=== PATIENT | male | born 1985 ===

== ENCOUNTER 2016-11-14 18:35 | Emergency (ER) | payer OTHER ==
[2016-11-14 18:42] VITALS: O2SAT 99
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
[2016-11-14] MEDS ORDERED: DiphenhydrAMINE 50 mg/ml Inj IVP STA (20:33)
--- NOTE | 2016-11-14 21:05 | US ---
EXAM: US Duplex Right Upper Extremity Arteries CLINICAL HISTORY: 31 years old, male; Pain; Arn, upper; Right; Additional info: Edema S/P heroin injection TECHNIQUE: Real-time ultrasound scan of the arteries of the right upper extremity with 2-D sanchez scale, color Doppler flow and spectral waveform analysis. COMPARISON: No relevant prior studies available. FINDINGS: Right subclavian artery: No acute findings. No occlusion or significant stenosis. Normal waveform. Right axillary artery: No acute findings. No occlusion or significant stenosis. Normal waveform. Right brachial artery: No acute findings. No occlusion or significant stenosis. Normal waveform. Right radial artery: No acute findings. No occlusion or significant stenosis. Normal waveform. Right ulnar artery: No acute findings. No occlusion or significant stenosis. Normal waveform. IMPRESSION: No acute vascular abnormality.
--- NOTE | 2016-11-14 21:07 | US ---
EXAM: US Duplex Right Upper Extremity Veins CLINICAL HISTORY: 31 years old, male; Signs and symptoms; Edema, localized; Upper extremity, right; Additional info: Edema S/P heroin injection TECHNIQUE: Real-time ultrasound scan of the veins of the right upper extremity with color Doppler flow, spectral waveform analysis and compression. COMPARISON: No relevant prior studies available. FINDINGS: Deep veins: Unremarkable as visualized. No DVT in the internal jugular, subclavian, axillary, or brachial veins. The veins are compressible with normal color flow and augmentation. Superficial veins: Unremarkable as visualized. No thrombus in the visualized basilic and cephalic veins. Soft tissues: 1.9 x 0.5 x 0.7 cm collection in the lateral antecubital fossa. IMPRESSION: No acute vascular abnormality. 1.9 x 0.5 x 0.7 cm collection in the lateral antecubital fossa. Correlate clinically. Followup evaluation recommended.
[2016-11-14 21:13] LABS: BASO # 0.1 K/uL (0.0-0.2); BASO % 0.5 % (0.0-2.0); EOS # 0.2 K/uL (0.0-0.7); EOS % 1.5 % (0.0-4.0); HEMATOCRIT 39.6 % (35.0-51.0); LYMPH # 2.4 K/uL (1.0-4.3); MEAN CELL VOLUME 84.2 fl (80.0-94.0); MEAN CORPUSCULAR HEMOGLOBIN 27.1 pg (27.0-31.0); MEAN CORPUSCULAR HGB CONC 32.2 g/dL (33.0-37.0); MEAN PLATELET VOLUME 8.5 fl (7.2-11.7); MONO # 0.9 K/uL (0.0-0.8); MONO % 7.7 % (0.0-10.0); NEUT # 8.3 K/uL (1.8-7.0); NEUT % 70.3 % (50.0-75.0); RED CELL DISTRIBUTION WIDTH 14.5 % (11.5-14.5); WHITE BLOOD COUNT 11.9 K/uL (4.8-10.8)
[2016-11-14 21:24] LABS: ALB/GLOB RATIO 1.1 (1.0-2.1); ALKALINE PHOSPHATASE 117 U/L (38-126); ALT/SGPT 56 U/L (21-72); AST/SGOT 37 U/L (17-59); BILIRUBIN,TOTAL 0.5 mg/dl (0.2-1.3); BLOOD UREA NITROGEN 13 mg/dl (9-20); CALCIUM 9.1 mg/dL (8.4-10.2); CARBON DIOXIDE 30 mmol/L (22-30); CHLORIDE 105 mmol/L (98-107); GFR AFRICAN-AMERICAN > 60; GLUCOSE,RANDOM 78 mg/dL (75-110); POTASSIUM 4.2 MMOL/L (3.6-5.0); SODIUM 143 mmol/l (132-148); TOTAL PROTEIN 7.1 G/DL (6.3-8.2)
[2016-11-14] MEDS ORDERED: DiphenhydrAMINE 50 mg/ml Inj ONE (21:27)
[2016-11-14] MEDS ORDERED: Vancomycin 1 g Inj ONE (21:29)
[2016-11-14 21:36] LABS: PARTIAL THROMBOPLASTIN TIME 26.6 SECONDS (23.3-32.5)
[2016-11-14] MEDS ORDERED: Sodium Chloride 0.9% 50 ML IV ONE (22:07)
[2016-11-14] MEDS ORDERED: Iohexol 300 100 ML IJ ONE (22:07)
--- NOTE | 2016-11-14 23:13 | CT ---
EXAM: CT Right Upper Extremity With Intravenous Contrast CLINICAL HISTORY: 31 years old, male; Signs and symptoms; Swelling; Arm, lower and elbow and hand and wrist; Right; Additional info: Ruq edema S/P heroin injection TECHNIQUE: Axial computed tomography images of the right upper extremity with intravenous contrast. This CT exam was performed using one or more of the following dose reduction techniques: automated exposure control, adjustment of the mA and/or kV according to patient size, and/or use of iterative reconstruction technique. Coronal and sagittal reformatted images were created and reviewed. CONTRAST: 95 mL of [id number] administered intravenously. COMPARISON: US - DUPLEX UPPER EXTRM ARTR RIGHT 11/14/2016 8:01:31 PM FINDINGS: Bones/joints: Unremarkable as visualized. No acute fracture. No dislocation. Soft tissues: Focus of increased markings noted in the subcutaneous tissue in the region of the antecubital fossa. Evaluation severely limited by technique. IMPRESSION: Focus of increased markings noted in the subcutaneous tissue in the region of the antecubital fossa. Evaluation severely limited by technique.
--- NOTE | 2016-11-14 23:46 | CP.PCM.HP ---
Past Patient History - Past Social History Drugs: Opiates (heroin ) - PSYCHIATRIC Hx Substance Use: Yes (heroine) Meds Allergies/Adverse Reactions: Allergies Allergy/AdvReac Type Severity Reaction Status Date / Time shellfish derived Allergy RASH Verified 11/14/16 18:38 Results - Vital Signs Recent Vital Signs: Last Vital Signs Temp 98.3 F 11/14/16 18:38 Pulse 110 H 11/14/16 18:38 Resp 18 11/14/16 18:38 BP 125/79 11/14/16 18:38 Pulse Ox 99 11/14/16 20:35 - Labs Result Diagrams: 11/14/16 21:08 11/14/16 21:08 Labs: Laboratory Results - last 24 hr 11/14/16 11/14/16 11/14/16 21:08 21:08 21:08 WBC 11.9 H RBC 4.70 Hgb 12.7 Hct 39.6 MCV 84.2 MCH 27.1 MCHC 32.2 L RDW 14.5 Plt Count 287 MPV 8.5 Neut % (Auto) 70.3 Lymph % (Auto) 20.0 [place] % (Auto) 7.7 Eos % (Auto) 1.5 Baso % (Auto) 0.5 Neut # 8.3 H Lymph # 2.4 [place] # 0.9 H Eos # 0.2 Baso # 0.1 PT 10.6 INR 1.02 APTT 26.6 Sodium 143 Potassium 4.2 Chloride 105 Carbon Dioxide 30 Anion Gap 12 BUN 13 Creatinine 1.1 Est GFR ( Amer) > 60 Est GFR (Non-Af Amer) > 60 Random Glucose 78 Calcium 9.1 Total Bilirubin 0.5 AST 37 ALT 56 Alkaline Phosphatase 117 Total Protein 7.1 Albumin 3.7 Globulin 3.4 Albumin/Globulin Ratio 1.1 Assessment & Plan - Date & Time Date: 11/14/16 Time: 23:46
[2016-11-15 00:17] VITALS: BP 122/76; PULSE 76; RESP 16; TEMP 98.9
--- NOTE | 2016-11-15 09:39 | RAD ---
PROCEDURE: Left Foot Radiographs. HISTORY: Induration COMPARISON: None. FINDINGS: BONES: Normal. No fracture. JOINTS: Normal. SOFT TISSUES: Normal. OTHER FINDINGS: None. IMPRESSION: Normal left foot radiographs. If symptoms persist or occult fracture suspected clinically repeat radiographs in 5-10 days could be performed as most fractures should become radiographically evident this timeframe. Alternatively, MRI could be obtained
== END 2016-11-15 00:17 | disposition home or self-care (01) ==
LOC: H.ER 18:35 → H.ERHOLD 23:34 → UNDOADMOB 23:34 → H.ER 11-15 00:17
DX: L03.113 Cellulitis of right upper limb (principal); L03.116 Cellulitis of left lower limb; T78.40XA Allergy, unspecified, initial encounter; F19.10 Other psychoactive substance abuse, uncomplicated

== ENCOUNTER 2016-12-29 03:05 | Emergency (ER) | payer SELFPAY ==
[2016-12-29 03:12] VITALS: BP 114/66; PULSE 91; RESP 16; TEMP 98; O2SAT 100
--- NOTE | 2016-12-29 03:57 | ED PDOC ---
HPI: Allergic Reaction Time Seen by Provider: 12/29/16 03:11 Chief Complaint (Nursing): Allergic Reaction History Per: Patient History/Exam Limitations: no limitations Onset/Duration Of Symptoms: Days (1) Current Symptoms Are (Timing): Better Possible Cause: Unknown Associated Symptoms: Skin Rash, Swelling, Itching Home/EMS Treatment: Benadryl Severity: Moderate Pain Scale Rating Of: 0 Additional History Per: Patient Additional Complaint(s): Pt report rash, lip swelling for 1 day. also reports left facial swelling. Unknown provoking factor. NO difficulty breathing or wheezing. No drooling. Pot report daily heroine IV use. Pt co left foot redness in injection sites. Past Medical History Reviewed: Historical Data, Nursing Documentation, Vital Signs Vital Signs: Last Vital Signs Temp 98 F 12/29/16 03:09 Pulse 91 H 12/29/16 03:09 Resp 16 12/29/16 03:09 BP 114/66 12/29/16 03:09 Pulse Ox 100 12/29/16 03:09 - Medical History PMH: No Chronic Diseases - Surgical History Surgical History: No Surg Hx - Family History Family History: States: No Known Family Hx - Home Medications Home Medications: Ambulatory Orders Medication Instructions Recorded DiphenhydrAMINE [Benadryl] 50 mg PO Q8H #20 cap 11/14/16 Famotidine [Pepcid] 20 mg PO BID #20 tab 11/14/16 Prednisone 50 mg PO DAILY #4 tab 11/14/16 Sulfamethoxazole/Trimethoprim 1 tab PO BID #20 tab 11/14/16 [Bactrim DS 800 mg-160 mg] Prednisone 50 mg PO DAILY #3 tablet 12/29/16 Sulfamethoxazole/Trimethoprim 1 tab PO BID #14 tab 12/29/16 [Bactrim DS 800 mg-160 mg] - Allergies Allergies/Adverse Reactions: Allergies Allergy/AdvReac Type Severity Reaction Status Date / Time shellfish derived Allergy RASH Verified 11/14/16 18:38 Review of Systems ROS Statement: Except As Marked, All Systems Reviewed And Found Negative Physical Exam - Reviewed Nursing Documentation Reviewed: Yes Vital Signs Reviewed: Yes - Physical Exam Appears: Positive for: Non-toxic. Negative for: Uncomfortable, In Acute Distress Head Exam: Positive for: ATRAUMATIC Skin: Positive for: Warm, Dry, Rash (mild urticaria abdomen) Eye Exam: Positive for: EOMI, Other (left periorbital swelling) ENT: Positive for: Other (upper lip swelling. no tongue swelling) Neck: Positive for: Supple Cardiovascular/Chest: Positive for: Regular Rate, Rhythm. Negative for: Tachycardia Respiratory: Positive for: Normal Breath Sounds. Negative for: Wheezing Gastrointestinal/Abdominal: Positive for: Soft. Negative for: Tenderness Extremity: Positive for: Other (mild redness left foot dorsum). Negative for: Deformity, Swelling Neurologic/Psych: Positive for: Alert, Oriented - ECG O2 Sat by Pulse Oximetry: 100 Disposition - Clinical Impression Clinical Impression: Angioedema - Patient ED Disposition Is Patient to be Admitted: No Doctor Will See Patient In The: Office Counseled Patient/Family Regarding: Studies Performed, Diagnosis, Need For Followup - Disposition Referrals: [facility] [Outside] Disposition: Routine/Home Disposition Time: 05:06 Condition: GOOD Additional Instructions: Follow up with your PCP in 2-3 days. Prescriptions: Prednisone 50 mg PO DAILY #3 tablet Sulfamethoxazole/Trimethoprim [Bactrim DS 800 mg-160 mg] 1 tab PO BID #14 tab Instructions: Angioedema (ED), Cellulitis (ED) Medical Decision Making Medical Decision Making: Impression Allergic reaction Urticaria, angioedema Pepcid IV solumedrol IV reassess
== END 2016-12-29 05:25 | disposition home or self-care (01) ==
LOC: H.ER 03:05
DX: T78.40XA Allergy, unspecified, initial encounter (principal)
CPT/HCPCS: 96374; 96375; 99282; J2930

== ENCOUNTER 2017-01-05 02:18 | Emergency (ER) | payer SELFPAY ==
[2017-01-05 02:28] VITALS: BP 126/53; PULSE 98; RESP 17; TEMP 99; O2SAT 100
[2017-01-05] MEDS ORDERED: DiphenhydrAMINE 50 mg/ml Inj IVP STA (03:13)
--- NOTE | 2017-01-05 03:27 | ED PDOC ---
HPI: Allergic Reaction Time Seen by Provider: 01/05/17 02:40 Chief Complaint (Nursing): Allergic Reaction Chief Complaint (Provider): Rash History Per: Patient History/Exam Limitations: no limitations Onset/Duration Of Symptoms: Days (9x) Current Symptoms Are (Timing): Still Present Home/EMS Treatment: Benadryl Severity: Moderate Additional Complaint(s): 31 year old male with no pertinent medical history presents to the ED with complaints of an itchy, red rash all over his body that started 9x days ago. He reports that it mildly resolves with benadryl, but then reoccurs. He reports that this morning he woke up with shortness of breath, chest tightness, and a non productive cough, which resolved after a few minutes. He was in this ED 6x days ago for a rash where he was discharged home with Rx for prednisone and bactrim (for a foot infection), but the rash persists. He denies having any exposure to new foods, lotions, creams, laundry detergent, pets, and environments outside of his home and work. He admits that he is a daily intravenous heroine user, but states that he quit 2x days ago. He denies having any withdrawal symptoms and does not believe that the rash is from the heroine. PMD: not provided Past Medical History Reviewed: Historical Data, Nursing Documentation, Vital Signs Vital Signs: Last Vital Signs Temp 99.0 F 01/05/17 02:25 Pulse 98 H 01/05/17 02:25 Resp 17 01/05/17 02:25 BP 126/53 L 01/05/17 02:25 Pulse Ox 100 01/05/17 02:25 - Medical History PMH: No Chronic Diseases - Surgical History Surgical History: No Surg Hx - Family History Family History: States: Unknown Family Hx - Social History Current smoker - smoking cessation education provided: Yes Alcohol: None Drugs: Other (heroine) - Home Medications Home Medications: Ambulatory Orders Medication Instructions Recorded DiphenhydrAMINE [Benadryl] 50 mg PO Q8H #20 cap 11/14/16 Famotidine [Pepcid] 20 mg PO BID #20 tab 11/14/16 Prednisone 50 mg PO DAILY #4 tab 11/14/16 Sulfamethoxazole/Trimethoprim 1 tab PO BID #20 tab 11/14/16 [Bactrim DS 800 mg-160 mg] Prednisone 50 mg PO DAILY #3 tablet 12/29/16 Sulfamethoxazole/Trimethoprim 1 tab PO BID #14 tab 12/29/16 [Bactrim DS 800 mg-160 mg] Albuterol HFA [Ventolin HFA 90 2 puff IH Q4H PRN #1 inh 01/05/17 mcg/actuation (8 g)] Famotidine [Pepcid] 40 mg PO DAILY PRN #14 tab 01/05/17 Fexofenadine HCl [LachelleNf] 180 mg PO DAILY #14 tab 01/05/17 Montelukast [Singulair] 10 mg PO DAILY #14 tab 01/05/17 Prednisone 50 mg PO DAILY #5 tablet 01/05/17 hydrOXYzine Pamoate [Vistaril] 50 mg PO BID PRN #30 cap 01/05/17 - Allergies Allergies/Adverse Reactions: Allergies Allergy/AdvReac Type Severity Reaction Status Date / Time shellfish derived Allergy RASH Verified 11/14/16 18:38 Review of Systems ROS Statement: Except As Marked, All Systems Reviewed And Found Negative Cardiovascular: Positive for: Chest Pain (chest tightness, has since resolved) Respiratory: Positive for: Cough (has since resolved), Shortness of Breath (has since resolved) Skin: Positive for: Rash (itchy and red) Physical Exam - Reviewed Nursing Documentation Reviewed: Yes Vital Signs Reviewed: Yes - Physical Exam Appears: Positive for: Well, Non-toxic, Uncomfortable Head Exam: Positive for: ATRAUMATIC, NORMOCEPHALIC Skin: Positive for: Warm, Dry, Rash (urticaria rash on neck, trunk, and extremities. face palms, and soles are spared.) Eye Exam: Positive for: Normal appearance, EOMI, PERRL Neck: Positive for: Normal, Supple Cardiovascular/Chest: Positive for: Regular Rate, Rhythm. Negative for: Chest Non Tender Respiratory: Positive for: Normal Breath Sounds. Negative for: Respiratory Distress Gastrointestinal/Abdominal: Positive for: Normal Exam, Soft. Negative for: Tenderness Extremity: Positive for: Normal ROM. Negative for: Deformity, Swelling Neurologic/Psych: Positive for: Alert, Oriented (3x) - Laboratory Results Result Diagrams: 01/05/17 03:20 01/05/17 03:20 - ECG O2 Sat by Pulse Oximetry: 100 (RA) Pulse Ox Interpretation: Normal Disposition - Clinical Impression Clinical Impression: Hives - Disposition Referrals: [facility] [Outside] (FOLLOW UP AT CLINIC THIS WEEK FOR FURTHER EVALUATION OF ALLERGIES) Disposition: Routine/Home Disposition Time: 04:00 Condition: STABLE Additional Instructions: YOU NEED TO FOLLOW UP WITH CLINIC FOR FURTHER ALLERGY TESTING RETURN TO ER FOR DIFFICULTY BREATHING, FAINTING OR NEAR FAINTING, THROAT CLOSING , OR ANY OTHER WORRISOME SYMPTOMS. Prescriptions: Albuterol HFA [Ventolin HFA 90 mcg/actuation (8 g)] 2 puff IH Q4H PRN #1 inh PRN Reason: ASTHMA Famotidine [Pepcid] 40 mg PO DAILY PRN #14 tab PRN Reason: reflux Fexofenadine HCl [LachelleNf] 180 mg PO DAILY #14 tab hydrOXYzine Pamoate [Vistaril] 50 mg PO BID PRN #30 cap PRN Reason: itching Montelukast [Singulair] 10 mg PO DAILY #14 tab Prednisone 50 mg PO DAILY #5 tablet Instructions: Urticaria (ED) Medical Decision Making Medical Decision Makin:40 Initial impression: 31 year old male with hives. Initial plan: * CMP * CBC * PT/PTT * XRay chest 2 views * benadryl 50mg IVP * blood culture * reevaluation Scribe Attestation: Documented by Amanda Bush, acting as a scribe for Jerri Anderson MD. Provider Scribe Attestation: All medical record entries made by the Scribe were at my direction and personally dictated by me. I have reviewed the chart and agree that the record accurately reflects my personal performance of the history, physical exam, medical decision making, and the department course for this patient. I have also personally directed, reviewed, and agree with the discharge instructions and disposition.
[2017-01-05 04:03] LABS: BASO % 0.3 % (0.0-2.0); EOS % 0.3 % (0.0-4.0); HEMATOCRIT 36.6 % (35.0-51.0); LYMPH % 13.4 % (20.0-40.0); MEAN CELL VOLUME 81.3 fl (80.0-94.0); MEAN CORPUSCULAR HEMOGLOBIN 27.1 pg (27.0-31.0); MEAN CORPUSCULAR HGB CONC 33.4 g/dL (33.0-37.0); MEAN PLATELET VOLUME 8.4 fl (7.2-11.7); MONO # 0.4 K/uL (0.0-0.8); MONO % 5.7 % (0.0-10.0); NEUT % 80.3 % (50.0-75.0); NRBC % 0.1 % (0.0-0.0); RED CELL DISTRIBUTION WIDTH 14.8 % (11.5-14.5); WHITE BLOOD COUNT 7.4 K/uL (4.8-10.8)
[2017-01-05 04:10] LABS: CHLORIDE 99 mmol/L (98-107); SODIUM 134 mmol/l (132-148)
[2017-01-05 04:11] LABS: POTASSIUM 4.3 MMOL/L (3.6-5.0)
[2017-01-05 04:13] LABS: ALB/GLOB RATIO 1.1 (1.0-2.1); ALKALINE PHOSPHATASE 94 U/L (38-126); AST/SGOT 29 U/L (17-59); BILIRUBIN,TOTAL 0.5 mg/dl (0.2-1.3); BLOOD UREA NITROGEN 13 mg/dl (9-20); CARBON DIOXIDE 30 mmol/L (22-30); GFR AFRICAN-AMERICAN > 60; GLUCOSE,RANDOM 86 mg/dL (75-110)
[2017-01-05 04:14] LABS: ALT/SGPT 40 U/L (21-72); CALCIUM 8.7 mg/dL (8.4-10.2)
[2017-01-05 04:25] LABS: PARTIAL THROMBOPLASTIN TIME 29.1 Seconds (25.6-37.1)
--- NOTE | 2017-01-05 10:10 | RAD ---
HISTORY: sob COMPARISON: No prior. TECHNIQUE: Chest PA and lateral FINDINGS: LUNGS: The interstitial markings are slightly increased and coarsened with a scattered peribronchial cuffing changes. Rule out sequela of reactive/inflammatory airway disease or viral illness. PLEURA: No significant pleural effusion identified. No pneumothorax apparent. CARDIOVASCULAR: Normal. OSSEOUS STRUCTURES: Minor multilevel degenerative spondylosis of the thoracic spine VISUALIZED UPPER ABDOMEN: Normal. OTHER FINDINGS: None. IMPRESSION: The interstitial markings are slightly increased and coarsened with a scattered peribronchial cuffing changes. Rule out sequela of reactive/inflammatory airway disease or viral illness.
== END 2017-01-05 05:14 | disposition home or self-care (01) ==
LOC: H.ER 02:18
DX: L50.9 Urticaria, unspecified (principal)
CPT/HCPCS: 71020; 80053; 85025; 85610; 85730; 87040; 96374; 99282; J1200

== ENCOUNTER 2018-09-10 23:02 | Emergency (ER) | payer OTHER ==
[2018-09-10 23:05] VITALS: BP 128/78; PULSE 84; RESP 18; TEMP 97.5; O2SAT 98
--- NOTE | 2018-09-10 23:55 | ED PDOC ---
HPI: Psych/Substance Abuse Chief Complaint (Provider): substance abuse History Per: Patient History/Exam Limitations: no limitations Onset/Duration Of Symptoms: Hrs (1) Current Symptoms Are (Timing): Still Present Additional Complaint(s): 32 y/o male brought in by EMS for evaluation of substance abuse. Patient states prior to arrival he injected what he thought was heroin into his right forearm and right after started feeling "constricted" in his chest, like he was not getting enough air in. Patient also reports feeling lightheaded and nauseous. Patient states this has never happened with heroin before and thinks it was something else. Denies headache, vomiting, extremity numbness/weakness, chest pain, palpitations, abdominal pain, alcohol use. <Sophie Street - Last Filed: 09/11/18 05:59> <Amanda Andino - Last Filed: 09/11/18 07:04> Time Seen by Provider: 09/10/18 23:14 Chief Complaint (Nursing): Substance Abuse Past Medical History Reviewed: Historical Data, Nursing Documentation, Vital Signs Vital Signs: Last Vital Signs Temp 97.5 F L 09/10/18 23:05 Pulse 84 09/10/18 23:05 Resp 18 09/10/18 23:05 BP 128/78 09/10/18 23:05 Pulse Ox 98 09/10/18 23:05 - Medical History PMH: Anxiety, Depression Denies: Diabetes, Hepatitis, HIV, HTN, Chronic Kidney Disease, Seizures, Sexually Transmitted Disease - Family History Family History: States: Unknown Family Hx - Immunization History Hx Tetanus Toxoid Vaccination: No Hx Influenza Vaccination: No Hx Pneumococcal Vaccination: No <Sophie Street - Last Filed: 09/11/18 05:59> Vital Signs: Last Vital Signs Temp 97.5 F L 09/10/18 23:05 Pulse 84 09/10/18 23:05 Resp 18 09/10/18 23:05 BP 128/78 09/10/18 23:05 Pulse Ox 98 09/11/18 06:07 <Amanda Andino - Last Filed: 09/11/18 07:04> - Home Medications Home Medications: Ambulatory Orders Medication Instructions Recorded Bacitracin Ointment [Bacitracin] 30 gm TOP BID #1 tube 03/03/18 Sulfamethoxazole/Trimethoprim 1 tab PO BID #14 tab 08/21/18 [Bactrim DS Tab] Mirtazapine [Remeron] 15 mg PO HS #30 tab 03/28/18 traZODone [Desyrel] 100 mg PO HS PRN #30 tab 03/28/18 Divalproex [Depakote DR] 500 mg PO BID #60 tcp 07/13/18 Gabapentin [Neurontin] 400 mg PO TID #90 cap 07/13/18 QUEtiapine [Seroquel] 200 mg PO HS #30 tab 07/13/18 - Allergies Allergies/Adverse Reactions: Allergies Allergy/AdvReac Type Severity Reaction Status Date / Time shellfish derived Allergy RASH Verified 09/10/18 23:05 Review of Systems ROS Statement: Except As Marked, All Systems Reviewed And Found Negative Respiratory: Positive for: Shortness of Breath <Sophie Street C - Last Filed: 09/11/18 05:59> Physical Exam - Reviewed Nursing Documentation Reviewed: Yes Vital Signs Reviewed: Yes - Physical Exam Appears: Positive for: Well, Non-toxic, Uncomfortable Head Exam: Positive for: ATRAUMATIC, NORMAL INSPECTION, NORMOCEPHALIC Skin: Positive for: Normal Color Eye Exam: Positive for: Normal appearance ENT: Positive for: Normal ENT Inspection Cardiovascular/Chest: Positive for: Regular Rate, Rhythm Respiratory: Positive for: Normal Breath Sounds Gastrointestinal/Abdominal: Positive for: Normal Exam Back: Positive for: Normal Inspection Extremity: Positive for: Normal ROM Neurologic/Psych: Positive for: Alert, Oriented (x3) <Sophie Street C - Last Filed: 09/11/18 05:59> - Laboratory Results Result Diagrams: 09/11/18 01:05 09/11/18 01:05 - ECG ECG: Positive for: Viewed By Me (reviewed by ED attending) ECG Rhythm: Positive for: Sinus Rhythm O2 Sat by Pulse Oximetry: 98 - Progress ED Course And Treament: -accucheck -ekg -cbc -cmp -urine drug screen -cardiac technician 1:30 Patient sleeping, no distress; vitals stable on monitor 3:00 Patient sleeping, no distress; vitals stable on monitor 4:30 Patient awake, no distress Repeat EKG unchanged Repeat troponin ordered <Sophie Street C - Last Filed: 09/11/18 05:59> - Laboratory Results Result Diagrams: 09/11/18 01:05 09/11/18 01:05 Lab Results: Troponin I < 0.0120 ng/mL (0.00-0.120) 09/11/18 05:27 Total Bilirubin 0.4 mg/dl (0.2-1.3) 09/11/18 01:05 AST 26 U/L (17-59) 09/11/18 01:05 ALT 30 U/L (21-72) 09/11/18 01:05 Alkaline Phosphatase 110 U/L (38-126) 09/11/18 01:05 Total Protein 7.8 G/DL (6.3-8.2) 09/11/18 01:05 Albumin 4.3 g/dL (3.5-5.0) 09/11/18 01:05 Globulin 3.5 gm/dL (2.2-3.9) 09/11/18 01:05 Albumin/Globulin Ratio 1.2 (1.0-2.1) 09/11/18 01:05 <Amanda Andino Filed: 09/11/18 07:04> Medical Decision Making Medical Decision Makin:50 Repeat troponin unremarkable. Two sets of EKGs within normal limits. Given referral for outpatient clinic to follow up. Return parameters discussed. - Scribe Attestation: Documented by Martha Sullivan acting as a scribe for Amanda Andino MD Provider Scribe Attestation: All medical record entries made by the Scribe were at my direction and person ally dictated by me. I have reviewed the chart and agree that the record accurately reflects my personal performance of the history, physical exam, medical decision making, and the department course for this patient. I have also personally directed, reviewed, and agree with the discharge instructions and disposition. <Amanda Andino Filed: 09/11/18 07:04> Disposition - Disposition Disposition Time: 06:00 Patient Signed Over To: Amanda Andino Handoff Comments: pending troponin and final dispo <Sophie Street - Last Filed: 09/11/18 05:59> - Patient ED Disposition Is Patient to be Admitted: No - Disposition Disposition: Routine/Home Disposition Time: 07:00 <Amanda Andino - Last Filed: 09/11/18 07:04> - Clinical Impression Clinical Impression: Polysubstance abuse - Disposition Condition: IMPROVED
[2018-09-11 01:15] LABS: BASO % 0.5 % (0.0-2.0); EOS # 0.1 K/uL (0.0-0.7); EOS % 0.7 % (0.0-4.0); HEMOGLOBIN 12.5 g/dL (12.0-18.0); LYMPH # 1.2 K/uL (1.0-4.3); LYMPH % 14.7 % (20.0-40.0); MEAN CELL VOLUME 85.2 fl (80.0-94.0); MEAN CORPUSCULAR HEMOGLOBIN 27.8 pg (27.0-31.0); MEAN CORPUSCULAR HGB CONC 32.6 g/dL (33.0-37.0); MEAN PLATELET VOLUME 9.6 fl (7.2-11.7); MONO # 0.6 K/uL (0.0-0.8); MONO % 6.8 % (0.0-10.0); NEUT # 6.3 K/uL (1.8-7.0); NEUT % 77.3 % (50.0-75.0); NRBC % 0.1 % (0.0-0.0); RBC 4.48 Mil/uL (4.40-5.90); RED CELL DISTRIBUTION WIDTH 14.5 % (11.5-14.5); WHITE BLOOD COUNT 8.2 K/uL (4.8-10.8)
[2018-09-11 01:49] LABS: BLOOD UREA NITROGEN 16 mg/dl (9-20); CALCIUM 9.7 mg/dL (8.4-10.2); GFR NON-AFRICAN AMERICAN > 60
[2018-09-11 01:50] LABS: ALB/GLOB RATIO 1.2 (1.0-2.1); ALBUMIN 4.3 g/dL (3.5-5.0); ALT/SGPT 30 U/L (21-72); AST/SGOT 26 U/L (17-59)
[2018-09-11 03:50] LABS: BARBITURATES, UR NEGATIVE (NEGATIVE); PHENCYCLIDINE, UR NEGATIVE (NEGATIVE)
[2018-09-11 03:55] LABS: BENZODIAZEPINES, UR NEGATIVE (NEGATIVE); OPIATES, UR POSITIVE (NEGATIVE)
--- NOTE | 2018-09-11 11:18 | CARD ---
APPROVED REPORT Date of service: 09/11/2018 EKG Measurement Heart [id number] <Conclusion> Normal sinus rhythm Normal Electrocardiogram
--- NOTE | 2018-09-11 11:21 | CARD ---
APPROVED REPORT Date of service: 09/10/2018 EKG Measurement Heart [id number] <Conclusion> Normal sinus rhythm Normal ECG
== END 2018-09-11 07:38 | disposition home or self-care (01) ==
LOC: H.ER 23:02
DX: F19.10 Other psychoactive substance abuse, uncomplicated (principal); F32.9 Major depressive disorder, single episode, unspecified; F41.9 Anxiety disorder, unspecified

== ENCOUNTER 2018-10-26 01:27 | Emergency (ER) | payer OTHER ==
[2018-10-26] MEDS ORDERED: DiphenhydrAMINE 50 mg/ml Inj IVP STA (01:59)
[2018-10-26] MEDS: Sodium Chloride 0.9% 1,000 ML IV SCH ×3 (02:08→04:08)
[2018-10-26 02:37] LABS: BASO % 0.7 % (0.0-2.0); EOS # 0.3 K/uL (0.0-0.7); EOS % 5.3 % (0.0-4.0); HEMOGLOBIN 12.4 g/dL (12.0-18.0); LYMPH # 1.5 K/uL (1.0-4.3); LYMPH % 23.7 % (20.0-40.0); MEAN CELL VOLUME 84.5 fl (80.0-94.0); MEAN CORPUSCULAR HEMOGLOBIN 27.9 pg (27.0-31.0); MEAN CORPUSCULAR HGB CONC 33.1 g/dL (33.0-37.0); MEAN PLATELET VOLUME 9.6 fl (7.2-11.7); MONO # 0.7 K/uL (0.0-0.8); MONO % 11.7 % (0.0-10.0); NEUT # 3.7 K/uL (1.8-7.0); NEUT % 58.6 % (50.0-75.0); NRBC % 0.2 % (0.0-0.0); RBC 4.45 Mil/uL (4.40-5.90); WHITE BLOOD COUNT 6.3 K/uL (4.8-10.8)
[2018-10-26 02:42] LABS: BLOOD UREA NITROGEN 18 mg/dl (9-20); CALCIUM 9.3 mg/dL (8.4-10.2); GFR NON-AFRICAN AMERICAN > 60; LIPASE 90 U/L (23-300); SQUAMOUS EPITHIAL < 1 /hpf (0-5); URINE BILIRUBIN NEGATIVE (NEGATIVE); URINE BLOOD NEGATIVE (NEGATIVE); URINE CLARITY SLIGHTY-CLOUDY (Clear); URINE COLOR AMBER (YELLOW); URINE GLUCOSE (UA) NEG (NEGATIVE); URINE LEUKOCYTE ESTERASE NEG Leu/uL (Negative); URINE PROTEIN 100 mg/dL (NEGATIVE)
--- NOTE | 2018-10-26 02:51 | ED PDOC ---
HPI: Abdomen Time Seen by Provider: 10/26/18 02:11 Chief Complaint (Nursing): Abdominal Pain Chief Complaint (Provider): Abdominal Pain History Per: Patient History/Exam Limitations: no limitations Onset/Duration Of Symptoms: Days (x 3) Current Symptoms Are (Timing): Still Present Location Of Pain/Discomfort: Diffuse Quality Of Discomfort: Stabbing, "Pain" Associated Symptoms: Chills, Other (sweats) Alleviating Factors: None Additional Complaint(s): 32 year old male with a history of heroin use and migraines presents to the ED for evaluation of intermittent, stabbing abdominal pain associated with subject chills, sweats, body aches, headache and dark stools. Patient reports relapsing in the last few days and that he missed his last methadone doses. 2-3 months a go, he first began experiencing these symptoms that come and go with dark loose stool. Once he began methadone treatments his stools began to harden, but pain persisted. He feels "like something is really wrong". He takes Ambien and methadone. Denies recent travel, known sick contacts, h/o abdominal surgery, urinary symptoms. PMD: none Past Medical History Reviewed: Historical Data, Nursing Documentation, Vital Signs Vital Signs: Last Vital Signs Temp 98.4 F 10/26/18 01:30 Pulse 86 10/26/18 01:30 Resp 19 10/26/18 01:30 BP 114/78 10/26/18 01:30 Pulse Ox 97 10/26/18 01:30 - Medical History PMH: Anxiety, Depression Denies: Diabetes, Hepatitis, HIV, HTN, Chronic Kidney Disease, Seizures, Sexually Transmitted Disease - Surgical History Surgical History: No Surg Hx - Family History Family History: States: Unknown Family Hx - Social History Drugs: Cocaine, Opiates (heroin) - Immunization History Hx Tetanus Toxoid Vaccination: No Hx Influenza Vaccination: No Hx Pneumococcal Vaccination: No - Home Medications Home Medications: Ambulatory Orders Medication Instructions Recorded Bacitracin Ointment [Bacitracin] 30 gm TOP BID #1 tube 03/03/18 Sulfamethoxazole/Trimethoprim 1 tab PO BID #14 tab 03/03/18 [Bactrim DS Tab] Mirtazapine [Remeron] 15 mg PO HS #30 tab 03/28/18 traZODone [Desyrel] 100 mg PO HS PRN #30 tab 03/28/18 Divalproex [Depakote DR] 500 mg PO BID #60 tcp 07/13/18 Gabapentin [Neurontin] 400 mg PO TID #90 cap 07/13/18 QUEtiapine [Seroquel] 200 mg PO HS #30 tab 07/13/18 - Allergies Allergies/Adverse Reactions: Allergies Allergy/AdvReac Type Severity Reaction Status Date / Time shellfish derived Allergy RASH Verified 10/26/18 01:33 Review of Systems ROS Statement: Except As Marked, All Systems Reviewed And Found Negative Constitutional: Positive for: Chills, Sweats. Negative for: Fever Gastrointestinal: Positive for: Abdominal Pain (stabbing) Neurological: Positive for: Headache Physical Exam - Reviewed Nursing Documentation Reviewed: Yes Vital Signs Reviewed: Yes - Physical Exam Comments: GENERAL APPEARANCE: Patient is awake, alert, oriented x 3, mild obvious discomfort and diaphoretic. HEAD: Atraumatic. SKIN: Warm, dry; (-) cyanosis. EYES: EOMI, Pupils dilated but equally reactive. (-) conjunctival pallor, (-) scleral icterus. ENMT: Mucous membranes moist. NECK: (-) tenderness, (-) stiffness, (-) lymphadenopathy. CHEST AND RESPIRATORY: (-) rales, (-) rhonchi, (-) wheezes; breath sounds equal bilaterally. HEART AND CARDIOVASCULAR: (-) irregularity; (-) murmur, (-) gallop. ABDOMEN AND GI: (-) distention. Bowel sounds active; diffuse tenderness. (-) guarding, (-) rebound, (-) palpable masses, (-) CVA tenderness. RECTAL: Good tone; Small amount of light brown stool on glove, sent for testing. (chaperoned by male techJuan Miguel) EXTREMITIES: (-) deformity, (-) edema, (+) distal pulses. NEURO AND PSYCH: director fraud II-XII intact. Steady gait. Normla finger to nose test. 5/5 strength of all extremities. Mental status as above; (-) focal findings. - Laboratory Results Result Diagrams: 10/26/18 02:32 10/26/18 02:32 Lab Results: Lipase 90 U/L (23-300) 10/26/18 02:32 Urine Color Claritza (YELLOW) 10/26/18 02:32 Urine Clarity Slighty-cloudy (Clear) 10/26/18 02:32 Urine pH 5.0 (5.0-8.0) 10/26/18 02:32 Ur Specific [place] 1.034 (1.003-1.030) H 10/26/18 02:32 Urine Protein 100 mg/dL (NEGATIVE) 10/26/18 02:32 Urine Glucose (UA) Neg mg/dL (NEGATIVE) 10/26/18 02:32 Urine Ketones Negative mg/dL (NEGATIVE) 10/26/18 02:32 Urine Blood Negative (NEGATIVE) 10/26/18 02:32 Urine Nitrate Negative (NEGATIVE) 10/26/18 02:32 Urine Bilirubin Negative (NEGATIVE) 10/26/18 02:32 Urine Urobilinogen 2.0 mg/dL (0.2-1.0) 10/26/18 02:32 Ur Leukocyte Esterase Neg Silver/uL (Negative) 10/26/18 02:32 Urine RBC (Auto) 1 /hpf (0-3) 10/26/18 02:32 Urine Microscopic WBC 1 /hpf (0-5) 10/26/18 02:32 Ur Squamous Epith Cells < 1 /hpf (0-5) 10/26/18 02:32 - ECG O2 Sat by Pulse Oximetry: 97 (RA) Pulse Ox Interpretation: Normal Medical Decision Making Medical Decision Makin:59 Plan: --CMP --CBC --Lipase --UDS --Benadryl 25 mg PO --NS IV 1,000 mls --Reglan 10 mg IVP --Toradol 30 mg IVP --Occult blood, stool --UA grants administrator Juan Miguel acted as scanning clerk for rectal exam. 0435 on re eval pt is sleeping, easily arousable, states he is feeling a lot better, pain free at this time, 2L of IVF still running, will finish and re eval 0530 re eval pt continues to feel better, abdomen is soft and non tender, headache resolved, neurologically intact, Urine shows polysubstance abuse Pt with months of symptoms will refer to GI Discussed results, diagnosis, treatment, return precautions and f/u with pt who is understanding, in agreement and stable for dc Scribe Attestation: Documented by Martha Sullivan, acting as a scribe for Avinash Wood PA-C Provider Scribe Attestation: All medical record entries made by the Scribe were at my direction and personally dictated by me. I have reviewed the chart and agree that the record accurately reflects my personal performance of the history, physical exam, medical decision making, and the department course for this patient. I have also personally directed, reviewed, and agree with the discharge instructions and disposition Disposition - Clinical Impression Clinical Impression: Abdominal pain, Substance abuse, Headache - Patient ED Disposition Is Patient to be Admitted: No Counseled Patient/Family Regarding: Studies Performed, Diagnosis, Need For Followup - Disposition Referrals: David Farnsworth MD [Staff Provider] - Disposition: Routine/Home Disposition Time: 05:39 Condition: IMPROVED Additional Instructions: The emergency medical care you received today was directed at your acute symptoms. If you were prescribed any medication, please fill it and take as directed. It may take several days for your symptoms to resolve. Return to the Emergency Department if your symptoms worsen, do not improve, or if you have any other problems. Please contact your doctor in 2 days for re-evaluation and follow up / or call one of the physicians/clinics you have been referred to that are listed on the Patient Visit Information form that is included in your discharge packet. Bring any paperwork you were given at discharge with you along with any medications you are taking to your follow up visit. Our treatment cannot replace ongoing medical care by a primary care provider (PCP) outside of the emergency department. Instructions: Headache, Adult, Acute Abdomen (Belly Pain), Adult (DC), Drug Abuse and Drug Addiction (DC) Forms: [employer] (Romansh) Print Language: STATELESS - POA Present On Arrival: None
[2018-10-26 02:52] LABS: ALB/GLOB RATIO 1.2 (1.0-2.1); ALBUMIN 4.5 g/dL (3.5-5.0); ALT/SGPT 29 U/L (21-72); AST/SGOT 62 U/L (17-59)
[2018-10-26 03:15] LABS: BARBITURATES, UR NEGATIVE (NEGATIVE); PHENCYCLIDINE, UR NEGATIVE (NEGATIVE)
[2018-10-26 03:27] LABS: BENZODIAZEPINES, UR POSITIVE (NEGATIVE); OPIATES, UR POSITIVE (NEGATIVE)
[2018-10-26 07:32] VITALS: BP 121/71; PULSE 68; RESP 18; TEMP 97.9; O2SAT 98
== END 2018-10-26 06:05 | disposition home or self-care (01) ==
LOC: H.ER 01:27
DX: R10.9 Unspecified abdominal pain (principal); F19.10 Other psychoactive substance abuse, uncomplicated; R51 Headache; Z86.59 Personal history of other mental and behavioral disorders
CPT/HCPCS: 80053; 80324; 80345; 80346; 80349; 80353; 80358; 80361; 81003; 83690; 83992; 85025; 96361; 96374; 96375; 99284; G0328; J1200; J1885; J2765; J7030

== ENCOUNTER 2018-10-28 23:42 | Emergency (ER) | payer OTHER ==
[2018-10-29] VITALS: RESP 16; O2SAT 99
--- NOTE | 2018-10-29 01:14 | ED PDOC ---
HPI: Abdomen Time Seen by Provider: 10/29/18 00:23 Chief Complaint (Nursing): Abdominal Pain Chief Complaint (Provider): abdominal pain History Per: Patient History/Exam Limitations: no limitations Onset/Duration Of Symptoms: Days (1) Current Symptoms Are (Timing): Still Present Location Of Pain/Discomfort: Diffuse Quality Of Discomfort: Cramping Associated Symptoms: Constipation Additional Complaint(s): 32 y/o male presents for evaluation of intermittent crampy abdominal pain x 1 day. Patient reports he has not had a bowel movement in 3 days. Patient states he is on Methadone and is currently being weaned off of it. Denies fever, nausea/vomiting, chest pain, shortness of breath, palpitations, urinary symptoms. Past Medical History Reviewed: Historical Data, Nursing Documentation, Vital Signs Vital Signs: Last Vital Signs Temp 98.3 F 10/28/18 23:57 Pulse 75 10/28/18 23:57 Resp 16 10/28/18 23:57 BP 154/103 H 10/28/18 23:57 Pulse Ox 99 10/28/18 23:57 - Medical History PMH: Anxiety, Depression Denies: Diabetes, Hepatitis, HIV, HTN, Chronic Kidney Disease, Seizures, Sexually Transmitted Disease - Surgical History Surgical History: No Surg Hx - Family History Family History: States: Unknown Family Hx - Immunization History Hx Tetanus Toxoid Vaccination: No Hx Influenza Vaccination: No Hx Pneumococcal Vaccination: No - Home Medications Home Medications: Ambulatory Orders Medication Instructions Recorded Bacitracin Ointment [Bacitracin] 30 gm TOP BID #1 tube 03/03/18 Sulfamethoxazole/Trimethoprim 1 tab PO BID #14 tab 03/03/18 [Bactrim DS Tab] Mirtazapine [Remeron] 15 mg PO HS #30 tab 03/28/18 traZODone [Desyrel] 100 mg PO HS PRN #30 tab 03/28/18 Divalproex [Depakote DR] 500 mg PO BID #60 tcp 07/13/18 Gabapentin [Neurontin] 400 mg PO TID #90 cap 07/13/18 QUEtiapine [Seroquel] 200 mg PO HS #30 tab 07/13/18 Docusate Sodium [Colace] 100 mg PO BID #20 capsule 10/29/18 Polyethylene Glycol 3350 [Miralax] 17 gm PO DAILY PRN #7 powd.pack 10/29/18 - Allergies Allergies/Adverse Reactions: Allergies Allergy/AdvReac Type Severity Reaction Status Date / Time shellfish derived Allergy RASH Verified 10/28/18 23:57 Review of Systems ROS Statement: Except As Marked, All Systems Reviewed And Found Negative Gastrointestinal: Positive for: Abdominal Pain, Constipation Physical Exam - Reviewed Nursing Documentation Reviewed: Yes Vital Signs Reviewed: Yes - Physical Exam Appears: Positive for: Well, Non-toxic, No Acute Distress Head Exam: Positive for: ATRAUMATIC, NORMAL INSPECTION, NORMOCEPHALIC Skin: Positive for: Normal Color Eye Exam: Positive for: Normal appearance ENT: Positive for: Normal ENT Inspection Cardiovascular/Chest: Positive for: Regular Rate, Rhythm Respiratory: Positive for: Normal Breath Sounds Gastrointestinal/Abdominal: Positive for: Bowel Sounds, Soft. Negative for: Tenderness Back: Positive for: Normal Inspection Extremity: Positive for: Normal ROM Neurological/Psych: Positive for: Awake, Alert, Oriented (x3) - ECG O2 Sat by Pulse Oximetry: 99 - Other Rad obstructive series X-Ray: Viewed By Me X-Ray Interpretation: moderate stool throughout - Progress ED Course And Treament: Patient evaluated here 3 days ago for same; labs reviewed, WNL Will give Toradol IM and order obstructive series xray Patient educated on findings, discharged with rx Miralax, colace Advised increase water intake, high fiber diet Follow up PMD within 2-3 days Return precautions given Disposition - Clinical Impression Clinical Impression: Constipation, Abdominal pain - Patient ED Disposition Is Patient to be Admitted: No Counseled Patient/Family Regarding: Studies Performed, Diagnosis, Need For Followup, Rx Given - Disposition Disposition: Routine/Home Disposition Time: 02:06 Condition: IMPROVED Prescriptions: Docusate Sodium [Colace] 100 mg PO BID #20 capsule Polyethylene Glycol 3350 [Miralax] 17 gm PO DAILY PRN #7 powd.pack PRN Reason: Constipation Instructions: Acute Abdomen (Belly Pain), Constipation in Adults
[2018-10-29 02:56] VITALS: BP 138/88; PULSE 72; TEMP 98
--- NOTE | 2018-10-29 10:03 | RAD ---
Date of service: 10/29/2018 PROCEDURE: Radiographs of the chest and abdomen (obstructive series) HISTORY: abd pain, constipation COMPARISON: No prior. TECHNIQUE: AP radiograph of the chest, with upright and supine radiographs of the abdomen. 3 views obtained. FINDINGS: CHEST: Lungs: The lungs are well inflated and clear. Cardiovascular: Normal size heart. No pulmonary vascular congestion. No aortic atherosclerotic calcification present Pleura: No pleural fluid. No pneumothorax. Other findings: None. ABDOMEN AND PELVIS: Bowel: There is large amount of stool in the colon and rectum. The bowel gas pattern is nonspecific. No evidence of mechanical obstruction. Free air: None. Bones: Unremarkable. Other findings: None. IMPRESSION: Constipation. No evidence for bowel obstruction. Clear lungs.
== END 2018-10-29 02:25 | disposition home or self-care (01) ==
LOC: H.ER 23:42
DX: R10.9 Unspecified abdominal pain (principal); K59.00 Constipation, unspecified
CPT/HCPCS: 74022; 96372; 99282; J1885

== ENCOUNTER 2018-11-06 03:36 | Emergency (ER) | payer OTHER ==
--- NOTE | 2018-11-06 05:23 | ED PDOC ---
HPI: General Adult Time Seen by Provider: 11/06/18 03:48 Chief Complaint (Nursing): Medical Clearance History Per: Patient History/Exam Limitations: no limitations Onset/Duration Of Symptoms: Days Have you had recent travel within the past 21 days to any of the following countries: [place], [place], [place] or [place]?: No Additional Complaint(s): 33 year old with history of opiate abuse presenting with request for detox for opiate abuse. States he was on methadone 120mg and his program lowered his dose to 10mg and he feels like he is going to withdrawal with body pains and frequent diarrhea every 15 minutes, however has had no diarrhea in E.D. No vomiting, shakes, chills. Past Medical History Reviewed: Historical Data, Nursing Documentation Vital Signs: Last Vital Signs Temp 97.5 F L 11/06/18 03:45 Pulse 85 11/06/18 04:42 Resp 19 11/06/18 03:45 BP 122/76 11/06/18 04:42 Pulse Ox 99 11/06/18 03:45 Primary Care Physician: Daksha Morales MD - Medical History PMH: Anxiety, Depression Denies: Diabetes, Hepatitis, HIV, HTN, Chronic Kidney Disease, Seizures, Sexually Transmitted Disease - Family History Family History: States: Unknown Family Hx - Immunization History Hx Tetanus Toxoid Vaccination: No Hx Influenza Vaccination: No Hx Pneumococcal Vaccination: No - Home Medications Home Medications: Ambulatory Orders Medication Instructions Recorded Bacitracin Ointment [Bacitracin] 30 gm TOP BID #1 tube 03/03/18 Sulfamethoxazole/Trimethoprim 1 tab PO BID #14 tab 03/03/18 [Bactrim DS Tab] Mirtazapine [Remeron] 15 mg PO HS #30 tab 03/28/18 traZODone [Desyrel] 100 mg PO HS PRN #30 tab 03/28/18 Divalproex [Depakote DR] 500 mg PO BID #60 tcp 07/13/18 Gabapentin [Neurontin] 400 mg PO TID #90 cap 07/13/18 QUEtiapine [Seroquel] 200 mg PO HS #30 tab 07/13/18 Docusate Sodium [Colace] 100 mg PO BID #20 capsule 10/29/18 Polyethylene Glycol 3350 [Miralax] 17 gm PO DAILY PRN #7 powd.pack 10/29/18 - Allergies Allergies/Adverse Reactions: Allergies Allergy/AdvReac Type Severity Reaction Status Date / Time shellfish derived Allergy RASH Verified 11/06/18 03:47 Review of Systems ROS Statement: Except As Marked, All Systems Reviewed And Found Negative Gastrointestinal: Positive for: Diarrhea Physical Exam - Reviewed Nursing Documentation Reviewed: Yes Vital Signs Reviewed: Yes - Physical Exam Appears: Positive for: Well, Non-toxic, No Acute Distress Head Exam: Positive for: ATRAUMATIC, NORMAL INSPECTION, NORMOCEPHALIC Skin: Positive for: Normal Color, Warm, DRY Eye Exam: Positive for: EOMI, Normal appearance, PERRL ENT: Positive for: Normal ENT Inspection Neck: Positive for: Normal, Painless ROM Cardiovascular/Chest: Positive for: Regular Rate, Rhythm Respiratory: Positive for: CNT, Normal Breath Sounds Gastrointestinal/Abdominal: Positive for: Normal Exam, Soft Back: Positive for: Normal Inspection Extremity: Positive for: Normal ROM Neurological/Psych: Positive for: Awake, Alert, Normal Tone - ECG O2 Sat by Pulse Oximetry: 99 Pulse Ox Interpretation: Normal Medical Decision Making Medical Decision Making: Patient presenting with detox request --Patient was sleeping soundly, had not gone to the bathroom for one hour, was lying in stretcher the entire time --Patient requesting "meds" to aid in withdrawal, however no signs or symptoms of withdrawal currently --Will give clonidine and ibuprofen to circular knitter helper in preventing later withdrawal symptoms --Gave list of detox facilities --Very well appearing upon discharge, no signs of acute withdrawal Disposition - Clinical Impression Clinical Impression: Substance abuse - Patient ED Disposition Is Patient to be Admitted: No Counseled Patient/Family Regarding: Need For Followup - Disposition Referrals: Daksha Morales MD [Primary Care Provider] - Disposition: Routine/Home Disposition Time: 04:20 Condition: GOOD Instructions: Opioid Use Disorder Forms: [employer] ([place])
[2018-11-06 06:07] VITALS: BP 120/72; PULSE 82; RESP 16; TEMP 98.3; O2SAT 98
== END 2018-11-06 05:35 | disposition home or self-care (01) ==
LOC: H.ER 03:36
DX: F11.10 Opioid abuse, uncomplicated (principal); F32.9 Major depressive disorder, single episode, unspecified; F41.9 Anxiety disorder, unspecified

== ENCOUNTER 2018-11-19 00:35 | Emergency (ER) | payer OTHER ==
[2018-11-19 01:36] VITALS: BP 137/83; PULSE 88; RESP 16; TEMP 97.8; O2SAT 98
[2018-11-19] MEDS ORDERED: Naproxen 500 MG TAB PO ONE ×2 (01:37→01:54)
--- NOTE | 2018-11-19 01:41 | ED PDOC ---
Lower Extremity Pain/Injury Time Seen by Provider: 11/19/18 01:25 Chief Complaint (Nursing): Lower Extremity Problem/Injury Chief Complaint (Provider): foot pain History Per: Patient History/Exam Limitations: no limitations Onset/Duration Of Symptoms: Days (weeks) Current Symptoms Are (Timing): Still Present Additional Complaint(s): 33 y/o male ambulates to ED for evaluation of pain to bottoms of both feet x 3 weeks. Patient states it started almost immediately after becoming homeless; states he walks everywhere. Patient states he changes his socks every other day. Patient states it is becoming difficult to walk due to the pain. Denies fever, swelling, redness, swelling, numbness. Past Medical History Reviewed: Historical Data, Nursing Documentation, Vital Signs Vital Signs: Last Vital Signs Temp 97.8 F 11/19/18 01:18 Pulse 88 11/19/18 01:18 Resp 16 11/19/18 01:18 BP 137/83 11/19/18 01:18 Pulse Ox 98 11/19/18 01:18 Primary Care Provider: FAMILY PROVIDER,NO - Medical History PMH: Anxiety, Depression Denies: Diabetes, Hepatitis, HIV, HTN, Chronic Kidney Disease, Seizures, Sexually Transmitted Disease - Family History Family History: States: Unknown Family Hx - Immunization History Hx Tetanus Toxoid Vaccination: No Hx Influenza Vaccination: No Hx Pneumococcal Vaccination: No - Home Medications Home Medications: Ambulatory Orders Medication Instructions Recorded Bacitracin Ointment [Bacitracin] 30 gm TOP BID #1 tube 03/03/18 Sulfamethoxazole/Trimethoprim 1 tab PO BID #14 tab 03/03/18 [Bactrim DS Tab] Mirtazapine [Remeron] 15 mg PO HS #30 tab 03/28/18 traZODone [Desyrel] 100 mg PO HS PRN #30 tab 03/28/18 Divalproex [Depakote DR] 500 mg PO BID #60 tcp 07/13/18 Gabapentin [Neurontin] 400 mg PO TID #90 cap 07/13/18 QUEtiapine [Seroquel] 200 mg PO HS #30 tab 07/13/18 Docusate Sodium [Colace] 100 mg PO BID #20 capsule 10/29/18 Polyethylene Glycol 3350 [Miralax] 17 gm PO DAILY PRN #7 powd.pack 10/29/18 - Allergies Allergies/Adverse Reactions: Allergies Allergy/AdvReac Type Severity Reaction Status Date / Time shellfish derived Allergy RASH Verified 11/06/18 03:47 Review of Systems ROS Statement: Except As Marked, All Systems Reviewed And Found Negative Musculoskeletal: Positive for: Foot Pain Physical Exam - Reviewed Nursing Documentation Reviewed: Yes Vital Signs Reviewed: Yes - Physical Exam Appears: Positive for: Well, Non-toxic, No Acute Distress Pulses-Dorsalis Pedis (L): 2+ Pulses-Dorsalis Pedis (R): 2+ Pulses-Post. Tibialis (L): 2+ Pulses-Post. Tibialis (R): 2+ Extremity: Positive for: Normal ROM, Other (tenderness to bilateral forefoot area. Open blister distal left forefoot base of 2-3 digits. skin thickening/tenderness plantar lateral aspect bilateral feet. No erythema, warmth, fluctuance noted) - ECG O2 Sat by Pulse Oximetry: 98 - Progress ED Course And Treament: -Naproxen PO Patient given a fresh pair of socks, educated on improving foot hygiene Advised follow up podiatry Return precautions given Disposition - Clinical Impression Clinical Impression: Bilateral foot pain, Callus of foot, Blister of foot - Patient ED Disposition Is Patient to be Admitted: No Counseled Patient/Family Regarding: Diagnosis, Need For Followup - Disposition Referrals: Podiatry Clinic [Outside] Disposition: Routine/Home Disposition Time: 02:30 Condition: IMPROVED Instructions: Corns and Calluses
== END 2018-11-19 03:57 | disposition home or self-care (01) ==
LOC: H.ER 00:35
DX: L84 Corns and callosities (principal)